=== PATIENT | female | born 1990 ===

== ENCOUNTER 2023-10-12 21:53 | Emergency (ER) | payer OTHER, SELFPAY ==
--- NOTE | ~2023-10-12 | CT_ITS ---
EXAMINATION: NONCONTRAST HEAD CT NONCONTRAST MAXILLOFACIAL CT INDICATION INFORMATION: Fall COMPARISON: None TECHNIQUE: Separate noncontrast CT examinations of the head and maxillofacial bones were performed. Coronal and sagittal images were created for each examination at the technologist workstation. DOSE LOWERING TECHNIQUES: This CT examination was performed using dose optimization techniques as appropriate, variously including the following: - Automated exposure control - Adjustment of mA and/or kV according to patient size (this includes techniques or standardized protocols for targeted exams were dose is matched to indication/reason for exam; i.e. extremities or head) - Use of iterative reconstruction technique DLP: 1066 mGy-cm FINDINGS: Head: There is no evidence of acute intracranial hemorrhage or territorial infarction. No abnormal mass-effect or midline shift is seen. Wayne to white matter differentiation is well preserved. No extra-axial fluid collections are identified. The ventricles are normal in size. There is no abnormal attenuation within the brain parenchyma. The osseous structures and soft tissues are normal. The mastoid air cells are well aerated. Maxillofacial: No acute maxillofacial fractures are seen. There is right periorbital soft tissue swelling. The frontal, maxillary, ethmoid, and sphenoid sinuses are well aerated. The uncinate process is normal bilaterally. There is mucosal thickening along the right infundibulum. There is leftward bowing of the nasal septum. The mandibular condyles are well-seated in the condylar fossa. The globes are intact, and there are no suspicious findings to suggest retrobulbar hemorrhage. CT/CT head/brain wo IV con IMPRESSION: No acute intracranial findings. No facial fracture identified. Right periorbital soft tissue swelling.
--- NOTE | ~2023-10-12 | CT_ITS ---
EXAMINATION: NONCONTRAST HEAD CT NONCONTRAST MAXILLOFACIAL CT INDICATION INFORMATION: Fall COMPARISON: None TECHNIQUE: Separate noncontrast CT examinations of the head and maxillofacial bones were performed. Coronal and sagittal images were created for each examination at the technologist workstation. DOSE LOWERING TECHNIQUES: This CT examination was performed using dose optimization techniques as appropriate, variously including the following: - Automated exposure control - Adjustment of mA and/or kV according to patient size (this includes techniques or standardized protocols for targeted exams were dose is matched to indication/reason for exam; i.e. extremities or head) - Use of iterative reconstruction technique DLP: 1066 mGy-cm FINDINGS: Head: There is no evidence of acute intracranial hemorrhage or territorial infarction. No abnormal mass-effect or midline shift is seen. Wayne to white matter differentiation is well preserved. No extra-axial fluid collections are identified. The ventricles are normal in size. There is no abnormal attenuation within the brain parenchyma. The osseous structures and soft tissues are normal. The mastoid air cells are well aerated. Maxillofacial: No acute maxillofacial fractures are seen. There is right periorbital soft tissue swelling. The frontal, maxillary, ethmoid, and sphenoid sinuses are well aerated. The uncinate process is normal bilaterally. There is mucosal thickening along the right infundibulum. There is leftward bowing of the nasal septum. The mandibular condyles are well-seated in the condylar fossa. The globes are intact, and there are no suspicious findings to suggest retrobulbar hemorrhage. CT/CT facial bones wo IV con IMPRESSION: No acute intracranial findings. No facial fracture identified. Right periorbital soft tissue swelling.
[2023-10-12 21:55] VITALS: BP 146/93; PULSE 99; RESP 18; TEMP 36.2; O2SAT 97; BMI 46.1
[2023-10-13 04:40] VITALS: BP 137/77; PULSE 78; RESP 16; TEMP 36.8; O2SAT 98
--- NOTE | 2023-10-13 05:03 | ED_ITS ---
HPI - Fall General Chief Complaint: Fall Stated Complaint: Fell/right side of face swelling Time Seen by Provider: 10/13/23 04:26 Source: patient Mode of arrival: ambulatory History of Present Illness HPI Narrative: 32-year-old female states that she was running with slippers and slipped on some ice and struck her head on the right side but denies any loss of consciousness. Related Data Allergies Allergy/AdvReac Type Severity Reaction Status Date / Time No Known Allergies Allergy Verified 10/12/23 22:01 Review of Systems Review of Systems: Pertinent positives and negatives as stated in [facility] Past Medical History Source: nursing notes reviewed Social History Social History Advance Directives: No Advance Directives Information Provided: No Physical Exam Vital Signs: Vital Signs: Last Vital Signs Temp 98.2 F 10/13/23 04:40 Pulse 78 10/13/23 04:40 Resp 16 10/13/23 04:40 BP 137/77 10/13/23 04:40 Pulse Ox 98 10/13/23 04:40 O2 Del Method Room Air 10/13/23 04:40 BMI result Body Mass Index 46.1 VITAL SIGNS: Reviewed. GENERAL: Well developed, well nourished, in no acute distress. HEAD: Normocephalic/abrasion to right forehead over lateral aspect of the eyebrow and extends over onto the lateral aspect of the right upper eyelid with associated swelling of the upper I EYES: PERRLA, EOMI EARS: Ext canals without abnormality NOSE: Nares patent bilateral OROPHARYNX: no oral lesions noted, posterior pharynx clear NECK: Supple, no adenopathy, no midline cervical spine tenderness to palpation or step-offs. LUNGS: Normal breath sounds. No adventitious sounds or accessory muscle use. SpO2<98> CARDIOVASCULAR: Regular rate and rhythm without noted murmurs ABDOMEN: Soft, non-tender, non-distended with bowel sounds. MUSCULOSKELETAL: No tenderness, deformities, or effusions noted on gross inspection. EXTREMITIES: No cyanosis, clubbing or edema. SKIN: Inspection of the skin reveals no rashes NEUROLOGIC: Alert and oriented x 4. Strength and sensation to light touch were grossly intact x 4. Medical Decision Making Medical Decision Making MDM Narrative: 32-year-old female with mechanical fall and head strike, on review of CT scan there is no evidence of intracranial hemorrhage or mass effect and cervical spine is negative for acute fracture Differential Diagnosis Differential Diagnoses: The differential diagnosis associated with the presentation includes Please see the discussion by Admission/Observation Consideration of admission/observation: Escalation of care including admission/observation considered Please see the discussion above Radiology Impression Discussion of test interpretation with radiology: I have reviewed the radiologist's reading. Radiologist Impression: Please see the discussion above Discharge Plan Discharge Clinical Impression: Fall, Superficial abrasion Patient Disposition: Home, Self-Care Instructions: Fall Prevention (ED), Abrasion (ED) Additional Instructions: 1. Tylenol 1000 mg, orally, every 6 hours as needed for pain control. Do not exceed 4000 mg within 24 hours. 2. Ibuprofen 400 mg, orally with milk or food, every 6 hours as needed for pain control. 3. Apply ice to unexposed skin. 4. Please follow-up with your primary care doctor. Return to the ER for any worsening symptoms.
[2023-10-13] MEDS: Ibuprofen 400 MG TABLET PO (05:19)
[2023-10-13] MEDS: Acetaminophen 325 MG TABLET 975 MG PO (05:19)
== END 2023-10-13 05:30 | disposition home or self-care (01) ==
PROVIDERS: Emergency Provider Student in an Organized Health Care Education/Training Program
DX: S00.81XA Abrasion of other part of head, initial encounter (principal); R51.9 Headache, unspecified; W01.10XA Fall on same level from slipping, tripping and stumbling with subsequent striking against unspecified object, initial encounter; Y93.9 Activity, unspecified; Y92.9 Unspecified place or not applicable; Y99.8 Other external cause status
CPT/HCPCS: 70450; 70486; 99284